=== PATIENT | female | born 2000 | race African-American/Black ===

== ENCOUNTER 2020-09-06 17:50 | Emergency (ER) | payer OTHER ==
[2020-09-07 01:36] LABS: SARS-CoV-2 PCR by NAA DETECTED (NotDetected)
== END 2020-09-06 18:35 | disposition home or self-care (01) ==
LOC: ERS 17:50
DX: U07.1 COVID-19 (principal)
CPT/HCPCS: 87635; 99283; U0003; U0005

== ENCOUNTER 2024-02-26 13:59 | Outpatient (CLI) | payer MEDICAID | END 2024-02-26 14:00 | disposition home or self-care (01) | LOC: BICRAD 13:59 | PROVIDERS: ATTEND Preventive Medicine Occupational Medicine | DX: Z02.71 Encounter for disability determination (principal); M35.9 Systemic involvement of connective tissue, unspecified; I51.89 Other ill-defined heart diseases | CPT/HCPCS: 71046 ==